=== PATIENT | male | born 1935 | race Two or more races ===

== ENCOUNTER 2022-04-05 05:40 | Day surgery (SDC) | payer OTHER ==
[~2022-04-05] VITALS: Ht 152.4 cm; Wt 72.6 kg
[~2022-04-05 05:40] MED LIST: MAGNESIU PO; SYNTHROID88 MCG PO; TELMISARTAN20 MG PO; TOPROL XL100 M1 PO; VITAMIN B122500 MCG PO; WELLBUTRIN XL300 MG PO
[2022-04-05] MEDS ORDERED: NEURONTIN300 MG PO (08:51)
[2022-04-05] MEDS ORDERED: KETO10TA2 PO (08:51)
[2022-04-05] MEDS ORDERED: ULTRAM50 MG PO (08:51)
== END 2022-04-05 13:40 | disposition home or self-care (01) ==
LOC: CIR.AMB 05:40
PROVIDERS: ATTEND Surgery
DX: L02.31 Cutaneous abscess of buttock (principal); K61.0 Anal abscess; K59.09 Other constipation; Z20.822 Contact with and (suspected) exposure to COVID-19; I10 Essential (primary) hypertension; J43.9 Emphysema, unspecified; Z87.891 Personal history of nicotine dependence; E03.9 Hypothyroidism, unspecified

== ENCOUNTER 2022-04-09 11:54 | Outpatient (CLI) | payer OTHER ==
[~2022-04-09 11:54] MED LIST changes: +KETO10TA2 PO; +NEURONTIN300 MG PO; +ULTRAM50 MG PO
== END 2022-04-09 12:00 | disposition home or self-care (01) ==
LOC: WOUND MED 11:54
PROVIDERS: ATTEND Specialist
DX: T81.30XD Disruption of wound, unspecified, subsequent encounter (principal); Y69 Unspecified misadventure during surgical and medical care
CPT/HCPCS: 11042; A4927; A6220; A6223

== ENCOUNTER 2022-04-13 10:44 | Outpatient (CLI) | payer OTHER | END 2022-04-13 11:00 | disposition home or self-care (01) | LOC: WOUND MED 10:44 | PROVIDERS: ATTEND Specialist | DX: L98.412 Non-pressure chronic ulcer of buttock with fat layer exposed (principal) | CPT/HCPCS: 97602; A4927; A6219; A6223 ==

== ENCOUNTER 2022-04-16 10:53 | Outpatient (CLI) | payer OTHER | END 2022-04-16 11:00 | disposition home or self-care (01) | LOC: WOUND MED 10:53 | PROVIDERS: ATTEND Specialist | DX: K62.6 Ulcer of anus and rectum (principal) | CPT/HCPCS: 11042; 11045; A4927; A6223 ==

== ENCOUNTER 2022-04-20 10:49 | Outpatient (CLI) | payer OTHER | END 2022-04-20 11:00 | disposition home or self-care (01) | LOC: WOUND MED 10:49 | PROVIDERS: ATTEND Specialist | DX: L98.412 Non-pressure chronic ulcer of buttock with fat layer exposed (principal); K62.6 Ulcer of anus and rectum | CPT/HCPCS: 97602; A4927; A6220; A6223; A6251 ==

== ENCOUNTER → 2022-04-23 | Outpatient (CLI) | payer OTHER | END | disposition home or self-care (01) | LOC: WOUND MED 09:00 | PROVIDERS: ATTEND Specialist | DX: K62.6 Ulcer of anus and rectum (principal) | CPT/HCPCS: 97602; A4927; A6220; A6223; A6251 ==

== ENCOUNTER 2022-04-27 11:14 | Outpatient (CLI) | payer OTHER | END 2022-04-27 12:00 | disposition home or self-care (01) | LOC: WOUND MED 11:14 | PROVIDERS: ATTEND Specialist | DX: L98.412 Non-pressure chronic ulcer of buttock with fat layer exposed (principal) | CPT/HCPCS: 97602; A4927; A6219; A6223; A6251 ==

== ENCOUNTER 2022-04-30 11:11 | Outpatient (CLI) | payer OTHER | END 2022-04-30 12:00 | disposition home or self-care (01) | LOC: WOUND MED 11:11 | PROVIDERS: ATTEND Specialist | DX: L98.412 Non-pressure chronic ulcer of buttock with fat layer exposed (principal) | CPT/HCPCS: 11042; A4927; A6021; A6219; A6223 ==

== ENCOUNTER 2022-05-14 10:54 | Outpatient (CLI) | payer OTHER | END 2022-05-14 10:55 | disposition home or self-care (01) | LOC: WOUND MED 10:54 | PROVIDERS: ATTEND Specialist | DX: L98.412 Non-pressure chronic ulcer of buttock with fat layer exposed (principal) | CPT/HCPCS: 11042; A4927; A6223 ==

== ENCOUNTER 2022-05-25 10:45 | Outpatient (CLI) | payer OTHER | END 2022-05-25 11:26 | disposition home or self-care (01) | LOC: WOUND MED 10:45 | PROVIDERS: ATTEND Specialist | DX: K62.6 Ulcer of anus and rectum (principal) | CPT/HCPCS: A4927; A6223; G0463 ==

== ENCOUNTER 2022-06-03 10:30 | Outpatient (CLI) | payer OTHER | END 2022-06-03 11:00 | disposition home or self-care (01) | LOC: WOUND MED 10:30 | PROVIDERS: ATTEND Specialist | DX: L98.412 Non-pressure chronic ulcer of buttock with fat layer exposed (principal) | CPT/HCPCS: 11042; A4927; A6219; A6223; A6251 ==

== ENCOUNTER 2022-06-11 10:56 | Outpatient (CLI) | payer OTHER | END 2022-06-11 11:25 | disposition home or self-care (01) | LOC: WOUND MED 10:56 | PROVIDERS: ATTEND Specialist | DX: L98.412 Non-pressure chronic ulcer of buttock with fat layer exposed (principal) | CPT/HCPCS: 11042; A4927; A6219; A6223 ==